=== PATIENT | male | born 1985 | race Caucasian/White ===

== ENCOUNTER 2023-10-25 19:08 | Emergency (ER) | payer OTHER ==
[~2023-10-25] VITALS: Ht 167.6 cm; Wt 135.6 kg
[2023-10-25 19:37] VITALS: BP 134/91; PULSE 92; RESP 18; TEMP 98; O2SAT 98
--- NOTE | 2023-10-25 19:42 | NUR ---
urine cup provided, ambulated to lobby
--- NOTE | 2023-10-25 20:37 | NUR ---
PT TAKEN TO BED 5
[2023-10-25 20:47] LABS: BASOPHILS % (AUTO) 0.4 % (0.0-2.0); EOSINOPHILS # (AUTO) 0.1 K/uL (0-0.4); EOSINOPHILS % (AUTO) 0.9 % (0.0-4.0); HEMOGLOBIN 15.1 g/dL (12.0-18.0); LYMPHOCYTES # (AUTO) 2.8 K/uL (2.0-11.5); LYMPHOCYTES % (AUTO) 24.9 % (20.5-51.1); MEAN CORPUSCULAR HEMOGLOBIN 27 pg (27-31); MEAN CORPUSCULAR HGB CONC 33 g/dL (33-37); MEAN CORPUSCULAR VOLUME 83.1 fL (80-94); MONOCYTES # (AUTO) 0.7 K/uL (0.8-1.0); MONOCYTES % (AUTO) 6.7 % (1.7-9.3); NEUTROPHILS # (AUTO) 7.4 K/uL (1.8-7.7); NEUTROPHILS % (AUTO) 67.1 % (42.2-75.2); PLATELET COUNT (AUTO) 261 K/uL (140-450); RED BLOOD CELL COUNT(AUTO) 5.53 MIL/uL (4.20-6.10); RED CELL DISTRIBUTION WIDTH 14.4 % (11.6-13.7); WHITE BLOOD COUNT (AUTO) 11.1 K/uL (4.8-10.8)
[2023-10-25] MEDS: KETOROLAC 30 MG/ML VIAL IVP ONE (20:59)
[2023-10-25 21:00] VITALS: BP 134/91; PULSE 92; RESP 18; TEMP 98; O2SAT 98
--- NOTE | 2023-10-25 21:00 | NUR ---
PT TO CT.
[2023-10-25 21:17] LABS: ANION GAP 14.6 (8-16); CALCIUM 10.1 mg/dL (8.5-10.1); CARBON DIOXIDE 27.3 mmol/L (21-32); POTASSIUM 3.9 mmol/L (3.5-5.1)
--- NOTE | 2023-10-25 21:19 | NUR ---
PT RETURN FROM CT
[2023-10-25 21:21] LABS: ALBUMIN 3.9 g/dL (3.4-5.0); BILIRUBIN,DIRECT 0.1 mg/dL (0.0-0.3); TOTAL BILIRUBIN 0.4 mg/dL (0.0-1.0); TOTAL PROTEIN, SERUM 8.4 g/dL (6.4-8.2)
[2023-10-25 21:28] VITALS: O2SAT 98
[2023-10-25] MEDS ORDERED: IBUP-2213 PO (21:57)
--- NOTE | 2023-10-25 21:57 | NUR ---
Patient discharged with v/s stable. Written and verbal after care instructions given and explained. Patient verbalized understanding. Ambulatory with steady gait. All questions addressed prior to discharge. Advised to follow up with PMD.
== END 2023-10-25 21:57 | disposition home or self-care (01) ==
LOC: MED 19:08
DX: K57.30 Diverticulosis of large intestine without perforation or abscess without bleeding (principal); K76.0 Fatty (change of) liver, not elsewhere classified
CPT/HCPCS: 36415; 74176; 80048; 80076; 83690; 85025; 96374; 99285; J1885